=== PATIENT | female | born 1960 | race Caucasian/White ===

== ENCOUNTER 2016-11-20 14:44 | Emergency (ER) | payer OTHER ==
--- NOTE | 2016-11-20 17:19 | ED ORDER SUMMARY ---
..... Patient: SUNG TRACY OrderSheet [facility] VisitID: [id number] [address] [place] [address] 56y, F Registration Date/Time: 11/20/2016 ORDER SHEET Weight: 136.0 kg (estimated) Allergies: Lamictal, Sulfa Antibiotics GENERAL ORDERS: UA-Culture if indicated Urgent (15:13 11/20/2016 RMarsden R.N. per protocol) (Ack 15:20 RKaruga) CBC w Diff Urgent (15:36 11/20/2016 HBivens A.R.N.P.) (Ack 15:38 RKaruga) CMP Urgent (15:36 11/20/2016 HBivens A.R.N.P.) (Ack 15:38 RKaruga) Amylase Urgent (15:36 11/20/2016 HBivens A.R.N.P.) (Ack 15:38 RKaruga) Lipase Urgent (15:36 11/20/2016 HBivens A.R.N.P.) (Ack 15:38 RKaruga) Serum Qualitative Urgent (15:36 11/20/2016 HBivens A.R.N.P.) (Ack 15:38 RKaruga) MEDICATION ORDERS: IV FLUIDS: Toradol IV 30 mg (NOW) (15:36 11/20/2016 HBivens A.R.N.P.) (Ack 15:53 RMarsden R.N.) (16:02 RMarsden R.N.) IV Saline Lock (15:36 11/20/2016 HBivens A.R.N.P.) (15:52 RMarsden R.N.) ORDER SHEET NOTES: [Electronically signed by Tamara JarrettR.N.P. (17:41 11/20/2016)] [Electronically signed by Zenobia Flood R.N. (19:20 11/20/2016)] [Electronically locked/signed by Zenobia Flood R.N. (19:20 11/20/2016)]
--- NOTE | 2016-11-20 17:19 | ED ORDER SUMMARY ---
..... Patient: SUNG TRACY OrderSheet VisitID: [id number] [address] [place] [address] 56y, F Registration Date/Time: 11/20/2016 ORDER SHEET Weight: 136.0 kg (estimated) Allergies: Lamictal, Sulfa Antibiotics GENERAL ORDERS: UA-Culture if indicated Urgent (15:13 11/20/2016 RMarsden R.N. per protocol) (Ack 15:20 RKaruga) CBC w Diff Urgent (15:36 11/20/2016 HBivens A.R.N.P.) (Ack 15:38 RKaruga) CMP Urgent (15:36 11/20/2016 HBivens A.R.N.P.) (Ack 15:38 RKaruga) Amylase Urgent (15:36 11/20/2016 HBivens A.R.N.P.) (Ack 15:38 RKaruga) Lipase Urgent (15:36 11/20/2016 HBivens A.R.N.P.) (Ack 15:38 RKaruga) Serum Qualitative Urgent (15:36 11/20/2016 HBivens A.R.N.P.) (Ack 15:38 RKaruga) MEDICATION ORDERS: IV FLUIDS: Toradol IV 30 mg (NOW) (15:36 11/20/2016 HBivens A.R.N.P.) (Ack 15:53 RMarsden R.N.) (16:02 RMarsden R.N.) IV Saline Lock (15:36 11/20/2016 HBivens A.R.N.P.) (15:52 RMarsden R.N.) ORDER SHEET NOTES: [Electronically signed by Tamara JarrettR.N.P. (17:41 11/20/2016)] [Electronically signed by Zenobia Flood R.N. (19:20 11/20/2016)] [Electronically locked/signed by Zenobia Flood R.N. (19:20 11/20/2016)]
--- NOTE | 2016-11-20 17:19 | ED NURSING NOTES ---
Clinical Report - Nurses [facility] [address] [place] [address] 11/20/2016 14:46 Patient: SUNG TRACY TRIAGE Triage time 15:12. 15:14 11/20/16. --15:14 Zenobia Flood R.N. Acuity: LEVEL 3. Chief Complaint: ABDOMINAL PAIN and (R abdominal pain). 15:29 11/20/16. Alert. No acute distress. SEPSIS SCREEN: Sepsis Screen. Negative (no infection suspected/documented). JOSE MARTIN COMA SCORE: Rulo Coma Scale: 15- eyes open spontaneously (4); best verbal response- oriented x 4 (5); best motor response- obeys commands (6). --15:29 Zenobia Flood R.N. 15:22 11/20/16. BP: 128/70. HR: 109. RR: 16. O2 saturation: 98%. Temp: 98.1 F. Pain level now: 5/10. --15:29 Zenobia Flood R.N. Weight: 136 kg estimated. Height/Length: 64 inches Estimated. BMI: 51.5. --17:37 Zenobia Flood R.N. Medications Atorvastatin Calcium Oral 20 mg, daily. Lantus Subcutaneous. Levothyroxine Sodium Oral 125 mcg, daily. Losartan Potassium Oral 50 mg, daily. TraZODone HCl Oral (Tablet 50 mg) 1 tablet, at bedtime. Venlafaxine HCl Oral 37.5 mg, 2x a day. --15:25 Zenobia Flood R.N. Medication/allergy information source: the patient. --15:29 Zenobia Flood R.N. Allergies Lamictal. Sulfa Antibiotics. --15:25 Zenobia Flood R.N. History Arrived by private vehicle. Historian: patient and family. Accompanied by family. --15:14 Zenobia Flood R.N. Primary physician (Dr. león). Onset. (3-4 days ago.). ( pt reports breathing in makes pain worse). She has had abdominal pain. No nausea, vomiting, diarrhea, constipation or fever. Treatment [employer]: Took ibuprofen. (pt states "i took a left over hydrocodone"). PAST MEDICAL HX: Immunizations: up-to-date. Denies current . SOCIAL HX: Never smoker. No alcohol use or drug use. FALL RISK ASSESSMENT: Fall risk assessment completed. No fall risk identified. NUTRITIONAL RISK ASSESSMENT: The nutritional risk assessment revealed no deficiencies. FUNCTIONAL ASSESSMENT: Functional assessment: no impairments noted. LEARNING NEEDS ASSESSMENT: The learning needs assessment revealed no barriers. SKIN INTEGRITY ASSESSMENT: Skin integrity risk assessment completed. No skin integrity risk identified. --15:29 Zenobia Flood R.N. PROBLEMS: Vaginal Bleeding. Hypercholesterolemia. Vertigo. Hypertension. Hypothyroidism. Anxiety Reaction. Diabetes Mellitus. Subconjunctival Hemorrhage. LNMP - Last Normal Menstrual Period. --15:21 Zenobia Flood R.N. Abdominal Pain [RuleOut]. Pyelonephritis [RuleOut]. --15:21 Zenobia Flood R.N. ADDITIONAL SURGERIES: Dilatation & Curettage. Gallbladder Surgery. Tonsillectomy. --15:21 Zenobia Flood R.N. Interventions ID band on patient. To treatment room. --15:29 Zenobia Flood R.N. PHYSICAL ASSESSMENT 15:30 11/20/16. Ambulatory to room. GENERAL / NEURO / PSYCH: Oriented X 4. Appears in no acute distress. RESPIRATORY: Respirations not labored. CVS: Capillary refill less than 2 seconds. SKIN: Skin is warm and dry. --15:30 Zenobia Flood R.N. NURSING PROGRESS NOTES 15:30 11/20/16. Two patient identifiers checked. Call light placed in reach. Side rails up x 1. Bed placed in lowest position. Brakes of bed on. ( Tamara Jarrett NP in room.). --15:30 Zenobia Flood R.N. 15:47 11/20/2016 Site #1 started via IV in the left antecubital space with an 20g angiocath; one attempt. Blood drawn: rainbow set. Labeled in the presence of the patient and sent to the lab. Saline lock flushed with 5 mL saline. --15:52 Zenobia Flood R.N. 15:52 11/20/16. Patient ID band checked for patient name and birthdate: patient confirmed. Instructions provided to collect clean catch urine and patient verbalized understanding. Clean catch urine collected with return of yellow-colored clear urine; sample sent to lab for urinalysis. Specimen labeled in the presence of the patient. --15:52 Zenobia Flood R.N. 16:02 11/20/2016 Toradol IVP 30 mg given over 2 minute(s) via site #1. Allergies verified and confirmed 5 rights. IV patency established. IV site checked: no pain, redness, or swelling. IV flushed thoroughly pre- and post-medication administration. IVP given by RN. --16:02 Zenobia Flood R.N. 16:06 11/20/16. Patient and family informed about reason for wait and about plan of care. --16:06 Zenobia Flood R.N. DISPOSITION / DISCHARGE 17:24 11/20/16. --17:24 Zenobia Flood R.N. 17:16 11/20/16. BP: 109/77. HR: 85. RR: 14. O2 saturation: 95%. Temp: deferred. Pain level now: 0/10. --17:24 Zenobia Flood R.N. 17:36 11/20/16. Departure time: 17:35. No learning barriers present. Discharge instructions provided and reviewed with the patient and spouse. Reviewed warnings. Reviewed medication(s). Treatments reviewed. Reviewed diet. Patient and spouse verbalized understanding. Written instructions provided in Gabonese. The patient was discharged by the nurse practitioner. She was discharged home and accompanied by spouse. She left the Emergency Department ambulatory and via private vehicle. --17:36 Zenobia Flood R.N. Locked/Released at 11/20/2016 19:20 by Zenobia Flood R.N.
--- NOTE | 2016-11-20 17:19 | ED CLINICAL REPORT ---
Clinical Report - Physicians/Mid Levels [facility] [address] [place] [address] 11/20/2016 14:46 Patient: SUNG TRACY Time Seen: 15:05; initial patient contact, initial documentation, patient care assumed. Arrived- By private vehicle. Historian- patient. HISTORY OF PRESENT ILLNESS Chief Complaint: ABDOMINAL PAIN. At its maximum, severity described as severe. When seen in the E.D., severity described as moderate. Modifying factors- worsened by movement and deep breaths. Not relieved by anything. It is described as "pain", sharp and stabbing and it is described as located in the right abdomen and radiating (R middle back). This started about 3 - 4 days ago and is still present. It was abrupt in onset and has been constant and waxing/waning. No nausea, loss of appetite, vomiting or diarrhea. No additional abdominal pain. (has hysterectomy scheduled in 1 week, and wants to make sure she is ok to have the surgery and there isn't something more serious going on). No recent travel. Similar symptoms previously: Once, as bad. ( when she had her gallbladder attacks, but her gallbladder was removded). Recent medical care: Not recently seen/assessed. REVIEW OF SYSTEMS No constipation, black stools, hematemesis, difficulty with urination or pain with urination. No urinary frequency, bloody stools, fever, chest pain or difficulty breathing. All systems otherwise negative, except as recorded above. PAST HISTORY See nurses notes. PAST HISTORY See nurses notes. ( PROBLEMS: Hypercholesterolemia. Vertigo. Hypertension. Hypothyroidism. Anxiety Reaction. Diabetes Mellitus. Subconjunctival Hemorrhage. LNMP - Last Normal Menstrual Period. --16:25 Arabella Tanner, R.N. ADDITIONAL SURGERIES: Dilatation & Curettage. Tonsillectomy. --16:25 Arabella Tanner, R.N.). SOCIAL HISTORY Never smoker. No alcohol use or drug use. No recent travel. Is a local resident. FAMILY HISTORY Negative. ADDITIONAL NOTES The nursing notes have been reviewed with agreement regarding the chief complaint, HPI, ROS, PMH and patient medications and allergies. PHYSICAL EXAM Vital Signs: 11/20/2016 15:22 BP: 128/70. HR: 109. RR: 16. O2 saturation: 98%. Temp: 98.1 F. Pain level now: 5/10. Have been reviewed as abnormal and appear to be correct. Blood pressure normal. Tachycardic. Respiratory rate normal. Temperature normal. Oxygen saturation normal. Appearance: Alert. Oriented X3. No acute distress. Anxious. Eyes: Pupils equal, round and reactive to light. Eyes normal inspection. Neck: Normal inspection. Neck supple. CVS: Normal heart rate and rhythm. Heart sounds normal. Pulses normal. Respiratory: No respiratory distress. Breath sounds normal. Chest nontender. Abdomen: Soft and nontender. Bowel sounds normal. No organomegaly. No mass. (pain increased with movement, when I had pt sit up and lay down). Back: Normal inspection. Skin: Skin warm and dry. Normal skin color. No rash. Normal skin turgor. Extremities: Extremities exhibit normal ROM. No lower extremity edema. Neuro: Oriented X 3. No motor deficit. No sensory deficit. LABS, X-RAYS, AND EKG Laboratory Tests: UA-Culture if indicated: (ISAMAR: 11/20/2016 15:17) ( MsgRcvd 11/20/2016 15:44) Final results Test Result Flag Units (Reference) URINE COLOR YELLOW URINE APPEARANCE CLEAR URINE GLUCOSE 3+ (NEGATIVE) URINE BILIRUBIN NEGATIVE (NEGATIVE) URINE KETONE NEGATIVE (NEGATIVE) URINE SPECIFIC GRAVITY 1.015 (1.010-1.030) URINE PH 5.5 (5.0-8.0) URINE PROTEIN NEGATIVE (NEGATIVE) URINE UROBILINOGEN 0.2 EU/dL (0.2-1.0) URINE NITRITE NEGATIVE (NEGATIVE) URINE BLOOD TRACE-INTACT (NEGATIVE) URINE LEUK ESTERASE NEGATIVE (NEGATIVE) URINE RBC 1-3 rbc/hpf (0-1) URINE WBC 0-1 wbc/hpf (0-1) URINE EPITHELIAL CELLS 1-3 EPI/hpf (0-5) URINE BACTERIA TRACE (<1+) (NONE SEEN) URINE COMMENT CULT NOT INDICATED URINE CULTURES ARE SET-UP BASED ON THE FOLLOWING CRITERIA:POSITIVE NITRITEPOSITIVE LEUKOCYTE ESTERASEGREATER THAN 10 WHITE BLOOD CELLSMODERATE (2+) OR GREATER BACTERIA Serum Qualitative: (ISAMAR: 11/20/2016 15:45) ( [facility] 11/20/2016 16:08) Final results Test Result Flag Units (Reference) , SERUM NEGATIVE CBC w Diff: (ISAMAR: 11/20/2016 15:45) ( [facility] 11/20/2016 15:57) Final results Test Result Flag Units (Reference) WHITE BLOOD COUNT 8.2 K/uL (4.5-11.5) RED BLOOD COUNT 5.28 H M/uL (4.00-5.20) HEMOGLOBIN 14.3 gm/dL (12.0-16.0) HEMATOCRIT 43.0 % (36.0-46.0) MEAN CELL VOLUME 82 fL (80-100) MEAN CORPUSCULAR HGB 27 pg (26-34) MEAN CORPUSCULAR HGB CONC 33 g/dL (31-37) RED CELL DISTRIBUTION WIDTH 12.9 % (11.6-14.8) PLATELET COUNT 272 K/uL (150-400) NEUTROPHIL % 73.2 % (50-75) LYMPH % 16.8 L % (25-40) MONO % 8.2 % (3-14) EOSINOPHIL % 1.4 % (0-4) BASOPHIL % 0.4 % (0-2) CMP: (ISAMAR: 11/20/2016 15:45) ( [facility] 11/20/2016 16:27) Final results Test Result Flag Units (Reference) GLUCOSE 306 H mg/dL (70-110) BUN 12 mg/dL (7-18) CREATININE 0.9 mg/dL (0.6-1.3) Estimated GFR >60 mL/min Estimated GFR- >60 mL/min Note: Persistent reduction over 3 months in eGFR<60 mL/min/1.73 m2 defines CKD. Patients with eGFR values>=60 mL/min/1.73 m2 may also have CKD if evidence ofpersistent proteinuria. Additional information may be foundat www.kidney.org. SODIUM 138 mmol/L (136-145) POTASSIUM 4.1 mmol/L (3.5-5.1) CHLORIDE 102 mmol/L (98-107) CARBON DIOXIDE 28 mmol/L (21-32) CALCIUM 8.3 L mg/dL (8.5-10.1) TOTAL PROTEIN 6.5 g/dL (6.4-8.2) ALBUMIN 3.1 L g/dL (3.3-5.0) BILIRUBIN, TOTAL 1.2 H mg/dL (0.0-1.0) ALKALINE PHOSPHATASE 222 H U/L (46-116) AST (SGOT) 49 H U/L (15-37) ALT (SGPT) 58 U/L (12-78) LIPASE 112 U/L (73-393) AMYLASE 27 U/L (25-115) . PROGRESS AND PROCEDURES Course of Care: had long discussion with pt and spouse re whether to ct or not, offered ct several times to help ease pt's mind and comfort, also went over all abd er's, such as appy, diverticulitis with ruptured bowel, acute pancreatitis, severe infection, hemorrhage and other dx, after discussion agreed to no imaging, do 3d course of abx, in case there is early onset uti and continue with scheduled hysterectomy, pt to return here if abd worsens, fever, vomiting or other concerns. Patient and spouse counseled in person regarding the patient's stable condition, test results and diagnosis. 16:41. Differential Diagnosis: I considered gastritis, gastroenteritis, peptic ulcer disease, gastroesophageal reflux disease, acute appendicitis, diverticulitis, colon cancer, ulcerative colitis, Crohn's disease, intussusception, adhesions, biliary colic, hepatitis, pancreatitis, common bile duct obstruction, bile leak, hernia, ureterolithiasis, endometriosis, abdominal aortic aneurysm and viral syndrome as a possible cause of abdominal pain in this patient. This is a partial list of diagnoses considered. Above considerations are based on history and physical exam. Differential diagnosis was discussed with patient. Disposition: Discharged home in good and improved condition (17:18). Condition: good and stable. CLINICAL IMPRESSION Acute right upper quadrant abdominal pain. Acute urinary tract infection with cystitis. INSTRUCTIONS Warnings: GENERAL WARNINGS: Return or contact your physician immediately if your condition worsens or changes unexpectedly, if not improving as expected, or if other problems arise. SPECIFICALLY, return if you develop pain in the abdomen or pelvis, fever, vomiting, the inability to keep fluids down, blood in vomitus, blood in diarrhea, fainting or lightheadedness. Prescription Medications: Zofran 4 mg: Take 1 orally every six hours as needed for nausea/vomiting. Dispense ten (10). No refills. Substitution is permissible. Cipro 500 mg: take 1 tab orally every 12 hours for 3 days. No refills. Ultram 50 mg tablets: take 1-2 orally every 6 hours as needed for pain. Dispense twenty (20). No refills. Substitution is permissible. Follow-up: Follow up with your doctor in about one week as scheduled. Summary of care provided to patient and family. Understanding of the discharge instructions verbalized by patient. (Electronically signed by Tamara Jarrett A.R.N.P. 11/20/2016 17:41)
--- NOTE | 2016-11-20 19:20 | ED MAR SUMMARY ---
..... Medication Administration Record [facility] [address] [place] [address] Patient: SUNG TRACY Visit ID: [id number] 56y, F Weight: 136.0 kg Height/Length: 64 in BMI: 51.5 ALLERGIES: Lamictal, Sulfa Antibiotics Given 16:02 11/20/2016 Zenobia Flood RMariela Medication Administered: TORADOL [IVP], Dose: 30 mg IVP over 2 minute(s), Site: #1 left AC. Medication Ordered: Toradol IV 30 mg (NOW).
--- NOTE | 2016-11-20 19:20 | ED MED RECONCILIATION SUMMARY ---
Patient: SUNG TRACY Medication Reconciliation Report [facility] VisitID: [id number] [address] [place] [address] 56y, F Registration Date/Time: 11/20/2016 Weight: 136.0 kg Height/Length: 64 in. BMI: 51.5 ALLERGIES: Lamictal, Sulfa Antibiotics The patient's Home Medications are listed below: THE FOLLOWING MEDICATIONS NEED TO BE RECONCILED: Atorvastatin Calcium Oral 20 mg, daily Lantus Subcutaneous Levothyroxine Sodium Oral 125 mcg, daily Losartan Potassium Oral 50 mg, daily TraZODone HCl Oral (50 mg) 1 tablet, at bedtime Venlafaxine HCl Oral 37.5 mg, 2x a day The source(s) of the original Home Medication information: patient The following Medications were given to the patient in the Emergency Department: Toradol [IVP] IVP 30 mg, administered: 11/20/2016 4:02:00 PM The following Medications were prescribed to the patient: Zofran 4 mg: Take 1 orally every six hours as needed for nausea/vomiting. Dispense ten (10). No refills. Substitution is permissible. -- Tamara Jarrett A.R.N.P. Cipro 500 mg: take 1 tab orally every 12 hours for 3 days. No refills. -- Tamara Jarrett A.R.N.P. Ultram 50 mg tablets: take 1-2 orally every 6 hours as needed for pain. Dispense twenty (20). No refills. Substitution is permissible. -- Tamara Jarrett A.R.N.P.
--- NOTE | 2016-11-20 19:20 | ED MED RECONCILIATION SUMMARY ---
Patient: SUNG TRACY Medication Reconciliation Report [facility] VisitID: [id number] [address] [place] [address] 56y, F Registration Date/Time: 11/20/2016 Weight: 136.0 kg Height/Length: 64 in. BMI: 51.5 ALLERGIES: Lamictal, Sulfa Antibiotics The patient's Home Medications are listed below: THE FOLLOWING MEDICATIONS NEED TO BE RECONCILED: Atorvastatin Calcium Oral 20 mg, daily Lantus Subcutaneous Levothyroxine Sodium Oral 125 mcg, daily Losartan Potassium Oral 50 mg, daily TraZODone HCl Oral (50 mg) 1 tablet, at bedtime Venlafaxine HCl Oral 37.5 mg, 2x a day The source(s) of the original Home Medication information: patient The following Medications were given to the patient in the Emergency Department: Toradol [IVP] IVP 30 mg, administered: 11/20/2016 4:02:00 PM The following Medications were prescribed to the patient: Zofran 4 mg: Take 1 orally every six hours as needed for nausea/vomiting. Dispense ten (10). No refills. Substitution is permissible. -- Tamara Jarrett A.R.N.P. Cipro 500 mg: take 1 tab orally every 12 hours for 3 days. No refills. -- Tamara Jarrett A.R.N.P. Ultram 50 mg tablets: take 1-2 orally every 6 hours as needed for pain. Dispense twenty (20). No refills. Substitution is permissible. -- Tamara Jarrett A.R.N.P.
--- NOTE | 2016-11-20 19:20 | ED MAR SUMMARY ---
..... Medication Administration Record [facility] [address] [place] [address] Patient: SUNG TRACY Visit ID: [id number] 56y, F Weight: 136.0 kg Height/Length: 64 in BMI: 51.5 ALLERGIES: Lamictal, Sulfa Antibiotics Given 16:02 11/20/2016 Zenobia Flood RMariela Medication Administered: TORADOL [IVP], Dose: 30 mg IVP over 2 minute(s), Site: #1 left AC. Medication Ordered: Toradol IV 30 mg (NOW).
--- NOTE | 2016-11-20 19:20 | ED DISCHARGE INSTRUCTIONS ---
Patient: SUNG TRACY General Instructions [facility] VisitID: [id number] [place] [address] 56y, F Registration Date/Time: 11/20/2016 Acute right upper quadrant abdominal pain. Acute urinary tract infection with cystitis. INSTRUCTIONS Warnings: GENERAL WARNINGS: Return or contact your physician immediately if your condition worsens or changes unexpectedly, if not improving as expected, or if other problems arise. SPECIFICALLY, return if you develop pain in the abdomen or pelvis, fever, vomiting, the inability to keep fluids down, blood in vomitus, blood in diarrhea, fainting or lightheadedness. Prescription Medications: Zofran 4 mg: Take 1 orally every six hours as needed for nausea/vomiting. Dispense ten (10). No refills. Substitution is permissible. Cipro 500 mg: take 1 tab orally every 12 hours for 3 days. No refills. Ultram 50 mg tablets: take 1-2 orally every 6 hours as needed for pain. Dispense twenty (20). No refills. Substitution is permissible. Follow-up: Follow up with your doctor in about one week as scheduled. Summary of care provided to patient and family. Understanding of the discharge instructions verbalized by patient. ADDITIONAL INFORMATION Abdominal Pain, Unknown Cause (Female) The exact cause of your abdominal (stomach) pain is not certain. This does not mean that this is something to worry about, or the right tests were not done. Everyone likes to know the exact cause of the problem, but sometimes with abdominal pain, there is no clear-cut cause, and this could be a good thing. The good news is that your symptoms can be treated, and you will feel better. Your condition does not seem serious now; however, sometimes the signs of a serious problem may take more time to appear. For this reason,it is important for you to watch for any new symptoms, problems,or worsening of your condition. Over the next few days, the abdominal pain may come and go, or be continuous. Other common symptoms can include nausea and vomiting. Sometimes it can be difficult to tell if you feel nauseous, you may just feel bad and not associate that feeling with nausea. Constipation, diarrhea, and a fever may go along with the pain. The pain may continue even if treated correctly over the following days. Depending on how things go, sometimes the cause can become clear and may require further or different treatment. Additional evaluations, medications, or tests may be needed. Home care Your health care provider may prescribe medications for pain, symptoms, or an infection. Follow the health care provider's instructions for taking these medications. General care Rest until your next exam. No strenuous activities. Try to find positions that ease discomfort. A small pillow placed on the abdomen may help relieve pain. Something warm on your abdomen (such as a heating pad) may help, but be careful not to burn yourself. Diet Do not force yourself to eat, especially if having cramps, vomiting, or diarrhea. Water is important so you do not get dehydrated. Soup may also be good. Sports drinks may also help, especially if they are not too acidic. Make sure you don't drink sugary drinks as this can make things worse. Take liquids in small amounts. Do not guzzle them. Caffeine sometimes makes the pain and cramping worse. Avoid dairy products if you have vomiting or diarrhea. Don't eat large amounts at a time. Wait a few minutes between bites. Eat a diet low in fiber (called a low-residue diet). Foods allowed include refined breads, white rice, fruit and vegetable juices without pulp, tender meats. These foods will pass more easily through the intestine. Avoid whole-grain foods, whole fruits and vegetables, meats, seeds and nuts, fried or fatty foods, dairy, alcohol and spicy foods until your symptoms go away. Follow-up care Follow up with your health care provider as instructed, or if your pain does not begin to improve in the next 24 hours. When to seek medical care Seek prompt medical care if any of the following occur: Pain gets worse or moves to the right lower abdomen New or worsening vomiting or diarrhea Swelling of the abdomen Unable to pass stool for more than three days Fever of 100.4F (38C) or higher, or as directed by your healthcare provider. Blood in vomit or bowel movements (dark red or black color) Jaundice (yellow color of eyes and skin) Weakness, dizziness Chest, arm, back, neck or jaw pain Unexpected vaginal bleeding or missed period Call 911 Call emergency services if any of the following occur: Trouble breathing Confusion Fainting or loss of consciousness Rapid heart rate Seizure Bladder Infection,Female (Adult) A bladder infection ("cystitis" or "UTI") usually causes a constant urge to urinate and a burning when passing urine. Urine may be cloudy, smelly or dark. There may be pain in the lower abdomen. A bladder infection occurs when bacteria from the vaginal area enter the bladder opening (urethra). This can occur from sexual intercourse, wearing tight clothing, dehydration and other factors. Home Care: Drink lots of fluids (at least 6-8 glasses a day, unless you must restrict fluids for other medical reasons). This will force the medicine into your urinary system and flush the bacteria out of your body. Avoid sexual intercourse until your symptoms are gone. Avoid caffeine, alcohol and spicy foods. These can irritate the bladder. A bladder infection is treated with antibiotics. You may also be given Pyridium (generic = phenazopyridine) to reduce the burning sensation. This medicine will cause your urine to become a bright orange color. The orange urine may stain clothing. You may wear a pad or panty-liner to protect clothing. Preventing Future Infections: Always wipe from front to back after a bowel movement. Keep the genital area clean and dry. Drink plenty of fluids each day to avoid dehydration. Both sexual partners should wash before intercourse. Urinate right after intercourse to flush out the bladder. Wear cotton underwear and cotton-lined panty hose; avoid tight-fitting pants. If you are on control pills and are having frequent bladder infections, discuss with your doctor. Follow Up: Return to this facility or see your doctor if ALL symptoms are not gone after three days of treatment. Get Prompt Medical Attention if any of the following occur: Fever of 100.4F (38C) or higher, or as directed by your healthcare provider No improvement by the third day of treatment Increasing back or abdominal pain Repeated vomiting; unable to keep medicine down Weakness, dizziness or fainting Vaginal discharge Pain, redness or swelling in the labia (outer vaginal area) Ondansetron Oral disintegrating tablet What is this medicine? ONDANSETRON (on ABNER se karla) is used to treat nausea and vomiting caused by chemotherapy. It is also used to prevent or treat nausea and vomiting after surgery. How should I use this medicine? These tablets are made to dissolve in the mouth. Do not try to push the tablet through the foil backing. With dry hands, peel away the foil backing and gently remove the tablet. Place the tablet in the mouth and allow it to dissolve, then swallow. While you may take these tablets with water, it is not necessary to do so. Talk to your marketing automation specialist regarding the use of this medicine in children. Special care may be needed. What side effects may I notice from receiving this medicine? Side effects that you should report to your doctor or health direct care specialist as soon as possible: allergic reactions like skin rash, itching or hives, swelling of the face, lips, or tongue breathing problems dizziness fast or irregular heartbeat feeling faint or lightheaded, falls fever and chills swelling of the hands and feet tightness in the chest Side effects that usually do not require medical attention (report to your doctor or health direct care specialist if they continue or are bothersome): constipation or diarrhea headache What may interact with this medicine? Do not take this medicine with any of the following medications: -apomorphine -cisapride -dofetilide -dronedarone -pimozide -thioridazine -ziprasidone This medicine may also interact with the following medications: -carbamazepine -phenytoin -rifampicin -tramadol -other medicines that prolong the QT interval (cause an abnormal heart rhythm) What if I miss a dose? If you miss a dose, take it as soon as you can. If it is almost time for your next dose, take only that dose. Do not take double or extra doses. Where should I keep my medicine? Keep out of the reach of children. Store between 2 and 30 degrees C (36 and 86 degrees F). Throw away any unused medicine after the expiration date. What should I tell my health care provider before I take this medicine? They need to know if you have any of these conditions: heart disease history of irregular heartbeat liver disease low levels of magnesium or potassium in the blood an unusual or allergic reaction to ondansetron, granisetron, other medicines, foods, dyes, or preservatives or trying to get breast-feeding What should I watch for while using this medicine? Check with your doctor or health direct care specialist as soon as you can if you have any sign of an allergic reaction. Ciprofloxacin Hydrochloride Oral tablet What is this medicine? CIPROFLOXACIN (sip skylar FLOX a sin) is a quinolone antibiotic. It is used to treat certain kinds of bacterial infections. It will not work for colds, flu, or other viral infections. How should I use this medicine? Take this medicine by mouth with a glass of water. Follow the directions on the prescription label. Take your medicine at regular intervals. Do not take your medicine more often than directed. Take all of your medicine as directed even if you think your are better. Do not skip doses or stop your medicine early. You can take this medicine with food or on an empty stomach. It can be taken with a meal that contains dairy or calcium, but do not take it alone with a dairy product, like milk or yogurt or calcium-fortified juice. A special MedGuide will be given to you by the pharmacist with each prescription and refill. Be sure to read this information carefully each time. Talk to your marketing automation specialist regarding the use of this medicine in children. Special care may be needed. What side effects may I notice from receiving this medicine? Side effects that you should report to your doctor or health direct care specialist as soon as possible: - allergic reactions like skin rash, itching or hives, swelling of the face, lips, or tongue - breathing problems - confusion, nightmares or hallucinations - feeling faint or lightheaded, falls - irregular heartbeat - joint, muscle or tendon pain or swelling - pain or trouble passing urine -persistent headache with or without blurred vision - redness, blistering, peeling or loosening of the skin, including inside the mouth - seizure - unusual pain, numbness, tingling, or weakness Side effects that usually do not require medical attention (report to your doctor or health direct care specialist if they continue or are bothersome): - diarrhea - nausea or stomach upset - white patches or sores in the mouth What may interact with this medicine? Do not take this medicine with any of the following medications: cisapride droperidol terfenadine tizanidine This medicine may also interact with the following medications: antacids caffeine cyclosporin didanosine (ddI) buffered tablets or powder medicines for diabetes medicines for inflammation like ibuprofen, naproxen methotrexate multivitamins omeprazole phenytoin probenecid sucralfate theophylline warfarin What if I miss a dose? If you miss a dose, take it as soon as you can. If it is almost time for your next dose, take only that dose. Do not take double or extra doses. Where should I keep my medicine? Keep out of the reach of children. Store at room temperature below 30 degrees C (86 degrees F). Keep container tightly closed. Throw away any unused medicine after the expiration date. What should I tell my health care provider before I take this medicine? They need to know if you have any of these conditions: -bone problems -cerebral disease -joint problems -irregular heartbeat -kidney disease -liver disease -myasthenia gravis -seizure disorder -tendon problems -an unusual or allergic reaction to ciprofloxacin, other antibiotics or medicines, foods, dyes, or preservatives - or trying to get -breast-feeding What should I watch for while using this medicine? Tell your doctor or health direct care specialist if your symptoms do not improve. Do not treat diarrhea with over the counter products. Contact your doctor if you have diarrhea that lasts more than 2 days or if it is severe and watery. You may get drowsy or dizzy. Do not drive, use machinery, or do anything that needs mental alertness until you know how this medicine affects you. Do not stand or sit up quickly, especially if you are an older patient. This reduces the risk of dizzy or fainting spells. This medicine can make you more sensitive to the sun. Keep out of the sun. If you cannot avoid being in the sun, wear protective clothing and use sunscreen. Do not use sun lamps or tanning beds/booths. Avoid antacids, aluminum, calcium, iron, magnesium, and zinc products for 6 hours before and 2 hours after taking a dose of this medicine. Tramadol Hydrochloride Oral tablet What is this medicine? TRAMADOL (TRA ma dole) is a pain reliever. It is used to treat moderate to severe pain in adults. How should I use this medicine? Take this medicine by mouth with a full glass of water. Follow the directions on the prescription label. If the medicine upsets your stomach, take it with food or milk. Do not take more medicine than you are told to take. Talk to your marketing automation specialist regarding the use of this medicine in children. Special care may be needed. What side effects may I notice from receiving this medicine? Side effects that you should report to your doctor or health direct care specialist as soon as possible: allergic reactions like skin rash, itching or hives, swelling of the face, lips, or tongue breathing difficulties, wheezing confusion itching light headedness or fainting spells redness, blistering, peeling or loosening of the skin, including inside the mouth seizures Side effects that usually do not require medical attention (report to your doctor or health direct care specialist if they continue or are bothersome): constipation dizziness drowsiness headache nausea, vomiting What may interact with this medicine? Do not take this medicine with any of the following medications: MAOIs like Carbex, Eldepryl, Marplan, Nardil, and Parnate This medicine may also interact with the following medications: alcohol or medicines that contain alcohol antihistamines benzodiazepines bupropion carbamazepine or oxcarbazepine clozapine cyclobenzaprine digoxin furazolidone linezolid medicines for depression, anxiety, or psychotic disturbances medicines for migraine headache like almotriptan, eletriptan, frovatriptan, naratriptan, rizatriptan, sumatriptan, zolmitriptan medicines for pain like pentazocine, buprenorphine, butorphanol, meperidine, nalbuphine, and propoxyphene medicines for sleep muscle relaxants naltrexone phenobarbital phenothiazines like perphenazine, thioridazine, chlorpromazine, mesoridazine, fluphenazine, prochlorperazine, promazine, and trifluoperazine procarbazine warfarin What if I miss a dose? If you miss a dose, take it as soon as you can. If it is almost time for your next dose, take only that dose. Do not take double or extra doses. Where should I keep my medicine? Keep out of the reach of children. Store at room temperature between 15 and 30 degrees C (59 and 86 degrees F). Keep container tightly closed. Throw away any unused medicine after the expiration date. What should I tell my health care provider before I take this medicine? They need to know if you have any of these conditions: brain tumor depression drug abuse or addiction head injury if you frequently drink alcohol containing drinks kidney disease or trouble passing urine liver disease lung disease, asthma, or breathing problems seizures or epilepsy suicidal thoughts, plans, or attempt; a previous suicide attempt by you or a family member an unusual or allergic reaction to tramadol, codeine, other medicines, foods, dyes, or preservatives or trying to get breast-feeding What should I watch for while using this medicine? Tell your doctor or health direct care specialist if your pain does not go away, if it gets worse, or if you have new or a different type of pain. You may develop tolerance to the medicine. Tolerance means that you will need a higher dose of the medicine for pain relief. Tolerance is normal and is expected if you take this medicine for a long time. Do not suddenly stop taking your medicine because you may develop a severe reaction. Your body becomes used to the medicine. This does NOT mean you are addicted. Addiction is a behavior related to getting and using a drug for a non-medical reason. If you have pain, you have a medical reason to take pain medicine. Your doctor will tell you how much medicine to take. If your doctor wants you to stop the medicine, the dose will be slowly lowered over time to avoid any side effects. You may get drowsy or dizzy. Do not drive, use machinery, or do anything that needs mental alertness until you know how this medicine affects you. Do not stand or sit up quickly, especially if you are an older patient. This reduces the risk of dizzy or fainting spells. Alcohol can increase or decrease the effects of this medicine. Avoid alcoholic drinks. You may have constipation. Try to have a bowel movement at least every 2 to 3 days. If you do not have a bowel movement for 3 days, call your doctor or health direct care specialist. Your mouth may get dry. Chewing sugarless gum or sucking hard candy, and drinking plenty of water may help. Contact your doctor if the problem does not go away or is severe. You have been given the following additional information: Abdominal Pain, Unknown Cause, (Female) Bladder Infection, Female (Adult) Ondansetron Oral disintegrating tablet Ciprofloxacin Hydrochloride Oral tablet Tramadol Hydrochloride Oral tablet (Electronically signed by Tamara Jarrett A.R.N.P. 11/20/2016 17:41)
== END 2016-11-20 17:35 | disposition home or self-care (01) ==
LOC: ED SRH 14:44
DX: R10.11 Right upper quadrant pain (principal); N30.00 Acute cystitis without hematuria; I10 Essential (primary) hypertension; E11.9 Type 2 diabetes mellitus without complications; Z79.4 Long term (current) use of insulin
CPT/HCPCS: 90004; 90100; 92235; 92530; 95059; 98428